=== PATIENT | female | born 1970 | race Caucasian/White ===

== ENCOUNTER 2023-12-01 12:47 | Emergency (ER) | payer OTHER ==
[2023-12-01 14:07] LABS: Absolute Basophils 0.1 K/uL (0-0.5); Absolute Eosinophils 0.5 K/uL (0-0.5); Absolute Lymphocytes (CBC) 3.2 K/uL (0.7-4.9); Absolute Monocytes 1.1 K/uL (0.1-1.3); Absolute Neutrophil 6.3 K/uL (1.8-8.0); Basophils % 0.7 % (0-1.3); Eosinophils % 4.3 % (0-4.4); Hematocrit 38.1 % (36.0-45.0); Hemoglobin 12.6 g/dL (12.0-15.0); Lymphocytes % 28.6 % (15.3-44.8); MCH 30.3 pg (27.0-35.0); MCV 91.7 fL (80-100); MPV 7.1 fL (7.6-11.3); Monocytes % 9.5 % (3.3-12.3); Neutrophils % 56.9 % (41.7-73.7); Nucleated Red Blood Cells % 0.1 % (0-0); Platelets 358 thou/uL (152-406); RBC Red Blood Cell Count 4.16 M/uL (3.86-4.86)
[2023-12-01 14:24] LABS: Albumin 3.7 g/dL (3.4-5.0); Anion Gap 10.7 mEq/L (5.0-15.0); Bilirubin Total 0.4 mg/dL (0.2-1.0); Globulin 3.8 g/dL (2.3-3.5); Potassium 3.7 mEq/L (3.5-5.1); Protein, Total 7.5 g/dL (6.4-8.2)
--- NOTE | 2023-12-01 16:17 | ER ---
Nurse's Notes [facility] Name: Missy Gardner Age: 52 yrs Sex: Female : 1970 Arrival Date: 12/01/2023 Time: 12:47 Bed 13 Private MD: Diagnosis: Cutaneous abscess of buttock-sp incision and drainage;Cellulitis of buttock Presentation: 11/30 12:55 Chief complaint: Patient states: abscess to right upper thigh, posterior , she got a iw shot of Rocephin on Tuesday and was started on cephalexin on Tuesday , it was not ready to be lanced when she saw her doctor on Tuesday. Coronavirus screen: At this time, the client does not indicate any symptoms associated with coronavirus-19. Ebola Screen: No symptoms or risks identified at this time. Initial Sepsis Screen: Does the patient meet any 2 criteria? No. Patient's initial sepsis screen is negative. Does the patient have a suspected source of infection? No. Patient's initial sepsis screen is negative. Risk Assessment: Do you want to hurt yourself or someone else? Patient reports no desire to harm self or others. Onset of symptoms was November 28, 2023. 12:55 Method Of Arrival: Ambulatory iw 12:55 Acuity: RALPH 3 iw Historical: - Allergies: 12:58 PENICILLINS; iw - Home Meds: 12:58 estrogen [Active]; venlafaxine oral [Active]; Omeprazole Oral [Active]; iw - PSHx: 12:58 hysterectomy; iw - Immunization history:: Adult Immunizations not up to date. - Infectious Disease History:: Denies. - Social history:: Smoking status: Reported history of juuling and/or vaping. - Family history:: not pertinent. Screenin:26 [facility] ED Fall Risk Assessment (Adult) History of falling in the last 3 months, kc6 including since admission No falls in past 3 months (0 pts) Confusion or Disorientation No (0 pts) Intoxicated or Sedated No (0 pts) Impaired Gait No (0 pts) Mobility Assist Device Used No (0 pt) Altered Elimination No (0 pt) Score/Fall Risk Level 0 - 2 = Low Risk. Abuse screen: Denies threats or abuse. Denies injuries from another. Nutritional screening: No deficits noted. Tuberculosis screening: No symptoms or risk factors identified. Assessment: 13:00 General: Appears in no apparent distress. comfortable, well groomed, well developed, kc6 Behavior is calm, cooperative, appropriate for age. Pain: Complains of pain in right hamstring. Neuro: Level of Consciousness is awake, alert, obeys commands, Oriented to person, place, time, situation, Appropriate for age. Cardiovascular: Capillary refill < 3 seconds. Respiratory: Airway is patent Trachea midline Respiratory effort is even, unlabored, Respiratory pattern is regular, symmetrical. GI: No signs and/or symptoms were reported involving the gastrointestinal system. : No signs and/or symptoms were reported regarding the genitourinary system. EENT: No signs and/or symptoms were reported regarding the EENT system. Derm: Skin is healthy with good turgor, Skin is normal, Abscess located on right hamstring is golf ball sized, has purulent drainage, is hot to touch, is red, is raised, was lanced by patient prior to arrival. Musculoskeletal: No signs and/or symptoms reported regarding the musculoskeletal system. Circulation, motion, and sensation intact. Capillary refill < 3 seconds, Range of motion: intact in all extremities. 14:00 Reassessment: Patient appears in no apparent distress at this time. No changes from kc6 previously documented assessment. Patient and/or family updated on plan of care and expected duration. Pain level reassessed. Patient is alert, oriented x 3, equal unlabored respirations, skin warm/dry/pink. 15:00 Reassessment: Patient appears in no apparent distress at this time. No changes from kc6 previously documented assessment. Patient and/or family updated on plan of care and expected duration. Pain level reassessed. Patient is alert, oriented x 3, equal unlabored respirations, skin warm/dry/pink. 16:38 Reassessment: Patient appears in no apparent distress at this time. No changes from kc6 previously documented assessment. Patient and/or family updated on plan of care and expected duration. Pain level reassessed. Patient is alert, oriented x 3, equal unlabored respirations, skin warm/dry/pink. Vital Signs: 12:55 BP 123 / 58; Pulse 81; Resp 16; Temp 98.6(O); Pulse Ox 98% on R/A; Weight 92.53 kg; iw 16:38 BP 120 / 78; Pulse 85; Resp 15 S; Pulse Ox 99% on R/A; kc6 ED Course: 12:49 Patient arrived in ED. mr 12:57 Natanael Brink MD is Attending Physician. dannie 12:57 Triage completed. iw 12:57 Arm band placed on. iw 13:17 Terri Erickson, BENJAMIN is Primary Nurse. kc6 13:26 Patient has correct armband on for positive identification. Bed in low position. Call kc6 light in reach. Side rails up X 1. Pulse ox on. NIBP on. Door closed. Noise minimized. Lights dimmed. Warm blanket given. Pillow given. 13:57 Initial lab(s) drawn, by co, sent to lab. Inserted saline lock: 22 gauge in left wrist, mb9 using aseptic technique. Blood collected. Flushed with 10 mL NS. 15:54 Assist provider with I \T\ D: of an abscess on right leg Set up I\T\D tray. Performed by kb 6 Natanael Brink MD Culture sent to lab. Wound packed. iodoform gauze, Dressing with ABD pad, 4X4s, tape Patient tolerated well. 16:17 Alok Peralta MD is Referral Physician. dannie 16:38 IV discontinued, intact, bleeding controlled, No redness/swelling at site. Pressure kc6 dressing applied. Administered Medications: 14:09 Not Given (Patient Refused): ondansetron 4 mg IVP once; over 2 minutes mb9 14:10 Drug: Clindamycin IVPB 900 mg IVPB once over 30 mins; (mix in 50 mL) Route: IVPB; mb9 Infused Over: 30 mins; Site: left wrist; 14:37 Follow up: Response: No adverse reaction; IV Status: Completed infusion; IV Intake: [id number] 14:10 Not Given (Patient Refused): morphineor iv 4 mg IVP once over 4 mins mb9 15:54 Drug: Lidocaine-Epinephrine Infiltration -1%: (1:100,000) 10 ml 20 ml Infiltration kc6 once; to bedside Volume: 20 ml; Route: Infiltration; 16:38 Follow up: Response: No adverse reaction; Pain is decreased kc6 16:37 Drug: Cephalexin PO 500 mg PO once Route: PO; kc6 16:37 Drug: Mupirocin Topical Ointment 2 % 1 application Topical once Route: Topical; Site: kc6 wound; Medication: 16:38 VIS not applicable for this client. kc6 Intake: 14:37 IV: 50ml; Total: 50ml. kc6 Outcome: 16:17 Discharge ordered by . dannie 16:38 Discharged to home ambulatory, kc6 16:38 Condition: good 16:38 Discharge instructions given to patient, Instructed on discharge instructions, follow up and referral plans. medication usage, wound care, Demonstrated understanding of instructions, follow-up care, medications, wound care, Prescriptions given X 3, 16:39 Patient left the ED. kc6 Signatures: Natanael Brink MD MD cha Rivera, Vannesa, Reg Reg mr Allison Brennan RN RN iw Terri Erickson RN RN Vannesa Dewey RN RN mb9 Corrections: (The following items were deleted from the chart) 13:53 12:55 BP 123 / 58; Pulse 81bpm; Resp 16bpm; Pulse Ox 98% RA; 92.53 kg; iw iw
--- NOTE | 2023-12-01 16:18 | EDPHYS ---
Physician Documentation [facility] Name: Missy Gardner Age: 52 yrs Sex: Female : 1970 Arrival Date: 12/01/2023 Time: 12:47 Bed 13 Private MD: SPENCER Physician Natanael Brink HPI: 11/30 16:11 This 52 yrs old Female presents to ER via Ambulatory with complaints of dannie Abscess. 16:11 The patient presents with an abscess of the right gluteus sapphire, The patient presents dannie with cellulitis of the right gluteus sapphire. Description: erythematous, fluctuant, swollen. Onset: The symptoms/episode began/occurred 5 day(s) ago. Possible cause(s): unknown. Associated signs and symptoms: The patient has no apparent associated signs or symptoms. Modifying factors: the symptoms are alleviated by remaining still, the symptoms are aggravated by movement, walking, pressure, sitting, squeezing the lesion and expressing the contents, touching. Severity of symptoms: At their worst the symptoms were moderate, in the emergency department the symptoms have improved, markedly. The patient has not experienced similar symptoms in the past. Historical: - Allergies: 12:58 PENICILLINS; iw - Home Meds: 12:58 estrogen [Active]; venlafaxine oral [Active]; Omeprazole Oral [Active]; iw - PSHx: 12:58 hysterectomy; iw - Immunization history:: Adult Immunizations not up to date. - Infectious Disease History:: Denies. - Social history:: Smoking status: Reported history of juuling and/or vaping. - Family history:: not pertinent. ROS: 16:11 Constitutional: Negative for fever, chills, and weight loss, Eyes: Negative for injury, dannie pain, redness, and discharge, ENT: Negative for injury, pain, and discharge, Neck: Negative for injury, pain, and swelling, Cardiovascular: Negative for chest pain, palpitations, and edema, Respiratory: Negative for shortness of breath, cough, wheezing, and pleuritic chest pain, Abdomen/GI: Negative for abdominal pain, nausea, vomiting, diarrhea, and constipation, Back: Negative for injury and pain, : Negative for injury, bleeding, discharge, and swelling, MS/Extremity: Negative for injury and deformity, Neuro: Negative for headache, weakness, numbness, tingling, and seizure, Psych: Negative for depression, anxiety, suicide ideation, homicidal ideation, and hallucinations, Allergy/Immunology: Negative for hives, rash, and allergies, Endocrine: Negative for neck swelling, polydipsia, polyuria, polyphagia, and marked weight changes, Hematologic/Lymphatic: Negative for swollen nodes, abnormal bleeding, and unusual bruising, 16:11 Skin: Positive for abscess, cellulitis, erythema, swelling, of the right gluteus sapphire, Exam: 16:11 Constitutional: This is a well developed, well nourished patient who is awake, alert, dannie and in no acute distress. Head/Face: Normocephalic, atraumatic. Eyes: Pupils equal round and reactive to light, extra-ocular motions intact. Lids and lashes normal. Conjunctiva and sclera are non-icteric and not injected. Cornea within normal limits. Periorbital areas with no swelling, redness, or edema. ENT: Nares patent. No nasal discharge, no septal abnormalities noted. Tympanic membranes are normal and external auditory canals are clear. Oropharynx with no redness, swelling, or masses, exudates, or evidence of obstruction, uvula midline. Mucous membranes moist. Neck: Trachea midline, no thyromegaly or masses palpated, and no cervical lymphadenopathy. Supple, full range of motion without nuchal rigidity, or vertebral point tenderness. No Meningismus. Chest/axilla: Normal chest wall appearance and motion. Nontender with no deformity. No lesions are appreciated. Cardiovascular: Regular rate and rhythm with a normal S1 and S2. No gallops, murmurs, or rubs. Normal PMI, no JVD. No pulse deficits. Respiratory: Lungs have equal breath sounds bilaterally, clear to auscultation and percussion. No rales, rhonchi or wheezes noted. No increased work of breathing, no retractions or nasal flaring. Abdomen/GI: Soft, non-tender, with normal bowel sounds. No distension or tympany. No guarding or rebound. No evidence of tenderness throughout. Back: No spinal tenderness. No costovertebral tenderness. Full range of motion. MS/ Extremity: Pulses equal, no cyanosis. Neurovascular intact. Full, normal range of motion. Neuro: Awake and alert, GCS 15, oriented to person, place, time, and situation. Cranial nerves II-XII grossly intact. Motor strength 5/5 in all extremities. Sensory grossly intact. Cerebellar exam normal. Normal gait. Psych: Awake, alert, with orientation to person, place and time. Behavior, mood, and affect are within normal limits. 16:11 Skin: abscess, that is moderate sized, of the buttocks, cellulitis, that is moderate, well demarcated, on the right gluteus sapphire, Vital Signs: 12:55 BP 123 / 58; Pulse 81; Resp 16; Temp 98.6(O); Pulse Ox 98% on R/A; Weight 92.53 kg; iw 16:38 BP 120 / 78; Pulse 85; Resp 15 S; Pulse Ox 99% on R/A; kc6 MDM: 12:57 Patient medically screened. [facility] 16:16 Differential diagnosis: abscess, cellulitis, insect bite. Data reviewed: vital signs, [facility] nurses notes, lab test result(s), CBC, electrolytes, hepatic panel. Consideration of Admission/Observation Escalation of care including admission/observation considered. I considered the following discharge prescriptions or medication management in the emergency department Medications were administered in the Emergency Department. See MAR. Test considered but Not performed: Ultrasound no usg. Care significantly affected by the following chronic conditions: Obesity. 11/30 13:41 Order name: CBC with Diff; Complete Time: 15:22 [facility] 11/30 13:41 Order name: Comprehensive Metabolic Panel; Complete Time: 15:22 [facility] 11/30 13:41 Order name: Wound Culture [facility] 11/30 13:41 Order name: Dressing - Wound; Complete Time: 13:43 [facility] 11/30 13:41 Order name: Gloves, Sterile; Complete Time: 13:43 [facility] 11/30 13:41 Order name: Setup Suture Tray; Complete Time: 13:43 [facility] 11/30 13:41 Order name: Misc. Order: 11 blade, iodo gauze; Complete Time: 13:43 [facility] Administered Medications: 14:09 Not Given (Patient Refused): ondansetron 4 mg IVP once; over 2 minutes mb9 14:10 Drug: Clindamycin IVPB 900 mg IVPB once over 30 mins; (mix in 50 mL) Route: IVPB; mb9 Infused Over: 30 mins; Site: left wrist; 14:37 Follow up: Response: No adverse reaction; IV Status: Completed infusion; IV Intake: [id number] 14:10 Not Given (Patient Refused): morphineor iv 4 mg IVP once over 4 mins mb9 15:54 Drug: Lidocaine-Epinephrine Infiltration -1%: (1:100,000) 10 ml 20 ml Infiltration kc6 once; to bedside Volume: 20 ml; Route: Infiltration; 16:38 Follow up: Response: No adverse reaction; Pain is decreased kc6 16:37 Drug: Cephalexin PO 500 mg PO once Route: PO; kc6 16:37 Drug: Mupirocin Topical Ointment 2 % 1 application Topical once Route: Topical; Site: kc6 wound; Disposition Summary: 12/01/23 16:17 Discharge Ordered Notes: Location: Home [facility] Problem: new dannie Symptoms: have improved dannie Condition: Fair dannie Diagnosis - Cutaneous abscess of buttock - sp incision and drainage dannie - Cellulitis of buttock dannie Followup: dannie - With: Private Physician - When: 2 - 3 days - Reason: Recheck today's complaints, Continuance of care, Re-evaluation by your physician Followup: dannie - With: Alok Peralta MD - When: 2 - 3 days - Reason: Recheck today's complaints, Re-evaluation by your physician Discharge Instructions: - Discharge Summary Sheet dannie - Skin Abscess dannie - Cellulitis, Adult dannie - Incision and Drainage dannie - Skin Abscess, [id number] dannie - Cellulitis, Adult, [id number] dannie - Incision and Drainage, Care After dannie Forms: - Medication Reconciliation Form dannie - Antibiotic Education dannie - Prescription Opioid Use dannie - Patient Portal Instructions [facility] - Leadership Thank You Letter [facility] Prescriptions: - acetaminophen-codeine 300-30 mg Oral tablet - take 2 tablet ORAL route every 6 hours as needed for pain; 20 tablet; Refills: dannie 0, Product Selection Permitted - Centany 2 % Topical ointment - apply 1 application TOPICAL route 3 times per day; 15 gram; Refills: 0, Product [facility] Selection Permitted - Clindamycin HCl 300 mg Oral capsule - take 1 capsule ORAL route every 6 hours for 7 days; 28 capsule; Refills: 0, dannie Product Selection Permitted Signatures: Dispatcher [employer] Natanael Mcneil MD MD cha Williams, Irene, RN RN iw Campbell, Kaitlyn, RN RN kc6 Vannesa Goncalves RN RN mb9
[2023-12-01 16:53] VITALS: TEMP 98.6
[2023-12-01 16:59] VITALS: BP 120/78; O2SAT 99
== END 2023-12-01 16:39 | disposition home or self-care (01) ==
LOC: ER 12:47
PROC: 0H98XZZ Drainage of Buttock Skin, External Approach (ICD-10-PCS; principal; 2023-12-01)
DX: L02.31 Cutaneous abscess of buttock (principal); L03.317 Cellulitis of buttock; Z87.891 Personal history of nicotine dependence; Z88.0 Allergy status to penicillin
CPT/HCPCS: 36415; 80053; 85025; 87070; 87205; 96365; 99284

== ENCOUNTER 2024-03-13 13:35 | Emergency (ER) | payer OTHER ==
[2024-03-13] MEDS ORDERED: ACETAMINOPHEN 500 MG TAB ONE (13:54)
[2024-03-13] MEDS ORDERED: IBUPROFEN 400 MG TAB ONE (13:54)
--- NOTE | 2024-03-13 15:24 | RAD REPORT ---
EXAM:Extremity Nonvascular Complete CLINICAL HISTORY: Pain and swelling TECHNIQUE: Sonographic evaluation of left inner thigh performed. FINDINGS: Ill-defined fluid collection measuring 2 x 0.5 x 0.8 cm is present. Increased vascularity is present adjacent to this. IMPRESSION: Small ill-defined fluid collection left inner thigh probably a cellulitis. A well-formed abscess is n ot visualized.
--- NOTE | 2024-03-13 15:55 | ER ---
Nurse's Notes [facility] Name: Missy Gardner Age: 53 yrs Sex: Female : 1970 Arrival Date: 03/13/2024 Time: 13:35 Bed 17 Private MD: Diagnosis: Cellulitis of left lower limb;Cutaneous abscess of left lower limb Presentation: 03/13 13:51 Chief complaint: Patient states: Spider bite to inside of left thigh onset 1.5wks ago. cm10 Pt states that she has taken Bactrim, Clindamycin and has had a rocephin injection. Pt states her PCP told her to come to the ED. Coronavirus screen: Client denies travel out of the [place] in the last 14 days. Ebola Screen: Patient denies travel to an Ebola-affected area in the 21 days before illness onset. No symptoms or risks identified at this time. Initial Sepsis Screen: Does the patient meet any 2 criteria? No. Patient's initial sepsis screen is negative. Does the patient have a suspected source of infection? No. Patient's initial sepsis screen is negative. Risk Assessment: Do you want to hurt yourself or someone else? Patient reports no desire to harm self or others. Onset of symptoms was March 13, 2024. 13:51 Method Of Arrival: Ambulatory cm10 13:51 Acuity: RALPH 3 cm10 Triage Assessment: 13:56 General: Appears in no apparent distress. uncomfortable, Behavior is calm, cooperative. cm10 Neuro: No deficits noted. Level of Consciousness is awake, alert, obeys commands, Oriented to person, place, time, situation, Appropriate for age. Respiratory: No deficits noted. Airway is patent Respiratory effort is even, unlabored, Respiratory pattern is regular, symmetrical. Derm: Abscess located on medial aspect of left thigh. Historical: - Allergies: 13:56 PENICILLINS; cm10 - PSHx: 13:56 hysterectomy; cm10 - Immunization history:: Adult Immunizations up to date. - Infectious Disease History:: Denies. - Social history:: Smoking status: Reported history of juuling and/or vaping. Screenin:29 [facility] ED Fall Risk Assessment (Adult) History of falling in the last 3 months, db including since admission No falls in past 3 months (0 pts) Confusion or Disorientation No (0 pts) Intoxicated or Sedated No (0 pts) Impaired Gait No (0 pts) Mobility Assist Device Used No (0 pt) Altered Elimination No (0 pt) Score/Fall Risk Level 0 - 2 = Low Risk Oriented to surroundings, Maintained a safe environment. Abuse screen: Denies threats or abuse. Denies injuries from another. Nutritional screening: No deficits noted. Tuberculosis screening: No symptoms or risk factors identified. Assessment: 16:29 Reassessment: Patient appears in no apparent distress at this time. Patient and/or db family updated on plan of care and expected duration. Pain level reassessed. Patient is alert, oriented x 3, equal unlabored respirations, skin warm/dry/pink. General: Appears in no apparent distress. comfortable, Behavior is calm, cooperative. Pain: Complains of pain in medial aspect of left thigh. Neuro: Level of Consciousness is awake, alert, obeys commands, Oriented to person, place. Respiratory: Airway is patent Respiratory effort is even, unlabored, Respiratory pattern is regular, symmetrical. Derm: Abscess located on medial aspect of left thigh. Vital Signs: 13:51 BP 111 / 98; Pulse 88; Resp 18; Temp 97.9(O); Pulse Ox 94% on R/A; Weight 90.72 kg; cm10 Height 5 ft. 2 in. ; Pain 10/10; 16:29 BP 109 / 45; Pulse 74; Resp 16; Pulse Ox 100% on R/A; db 13:51 Body Mass Index 36.58 (90.72 kg, 157.48 cm) cm10 13:51 Pain Scale: Adult cm10 ED Course: 13:40 Patient arrived in ED. ra3 13:48 Polina Hahn FNP-C is PHCP. kb 13:48 Steve Vargas MD is Attending Physician. kb 13:56 Triage completed. cm10 13:56 Arm band placed on right wrist. Patient placed in waiting room. cm10 14:50 Extremity Nonvascular Complete In Process Unspecified. EDMS 16:10 Dianne Deng, BENJAMIN is Primary Nurse. db 16:26 Wound Culture Sent. db 16:29 Patient has correct armband on for positive identification. Bed in low position. Call db light in reach. Side rails up X 1. Provided Education on: DISCHARGE AND FOLLOWUP. Pulse ox on. NIBP on. Pillow given. 16:29 No provider procedures requiring assistance completed. Patient did not have IV access db during this emergency room visit. Administered Medications: 13:59 Drug: Ibuprofen PO 800 mg PO once Route: PO; cm10 16:32 Follow up: Response: No adverse reaction db 13:59 Drug: Acetaminophen PO 1000 mg PO once Route: PO; cm10 16:32 Follow up: Response: No adverse reaction db 16:00 Drug: Doxycycline PO 100 mg PO once Route: PO; db 16:31 Follow up: Response: No adverse reaction db Medication: 16:29 VIS not applicable for this client. db Outcome: 15:54 Discharge ordered by MD. kb 16:29 Discharged to home ambulatory, db 16:29 Condition: stable 16:29 Discharge instructions given to patient, Instructed on discharge instructions, follow up and referral plans. Prescriptions given X 1, 16:32 Patient left the ED. db Addendum: 03/16/2024 07:22 Addendum: Culture Results: Positive wound culture. positive for MRSA. report received h a1 from laboratory helper. Signatures: Dispatcher [employer] EDMS Polina Hahn, ELECTRIC SOLDERER-C ELECTRIC SOLDERER-Farzaneh Brooks, RN RN ha1 Dianne Deng RN RN Susan Medeiros RN RN cm10 Kierra Corral ra3
--- NOTE | 2024-03-13 15:55 | EDPHYS ---
Physician Documentation [facility] Name: Missy Gardner Age: 53 yrs Sex: Female : 1970 Arrival Date: 03/13/2024 Time: 13:35 Bed 17 Private MD: ED Physician Steve Vargas HPI: 03/13 13:59 This 53 yrs old Female presents to ER via Ambulatory with complaints of Spider bite. kb 13:59 Pt is a 53 year old female who presents for abscess to medial aspect of left thigh that kb started 1.5 weeks ago. States she was seen by PCP who gave her a shot of rocephin and started her on bactrim and clindamycin (has one more day left of course). States the surrounding redness has gotten better, but the area is still swollen, there is an opening now that has gotten worse and the pain is worse. Reports fever last week that has resolved. Denies nausea, vomiting. . Historical: - Allergies: 13:56 PENICILLINS; cm10 - PSHx: 13:56 hysterectomy; cm10 - Immunization history:: Adult Immunizations up to date. - Infectious Disease History:: Denies. - Social history:: Smoking status: Reported history of juuling and/or vaping. ROS: 13:59 Constitutional: As per HPI kb Exam: 13:59 Constitutional: This is a well developed, well nourished patient who is awake, alert, kb and in no acute distress. Head/Face: Normocephalic, atraumatic. ENT: Moist Mucous membranes Cardiovascular: Regular rate Respiratory: Respirations even and unlabored. No increased work of breathing. Talking in full sentences MS/ Extremity: Pulses equal, no cyanosis. Neurovascular intact. Full, normal range of motion. Neuro: Awake and alert, GCS 15, oriented to person, place, time, and situation. 13:59 Skin: abscess, that is small, of the medial aspect of left thigh, with drainage, moderate/large mass felt above level of abscess. , Vital Signs: 13:51 BP 111 / 98; Pulse 88; Resp 18; Temp 97.9(O); Pulse Ox 94% on R/A; Weight 90.72 kg; cm10 Height 5 ft. 2 in. ; Pain 10/10; 16:29 BP 109 / 45; Pulse 74; Resp 16; Pulse Ox 100% on R/A; db 13:51 Body Mass Index 36.58 (90.72 kg, 157.48 cm) cm10 13:51 Pain Scale: Adult cm10 MDM: 13:48 Medical Screening Exam initiated 14:02 Data reviewed: vital signs, nurses notes. ED course: Pt is a 53 year old female who kb presents for abscess to left leg. On exam, pt has open and draining abscess to medial aspect of left thigh with a moderate/large mass just above it. Will obtain US to evaluate mass. Pt given ibuprofen and tylenol for pain management. Pt requests we do not give anything stronger. . 15:51 Differential diagnosis: abscess, allergic reaction, cellulitis, insect bite. kb Consideration of Admission/Observation Escalation of care including admission/observation considered. admission considered for IV antibiotics since pt has almost completed po antibiotics, but symptoms have improved since taking oral antibiotics, vitals wnl. Discussed this with patient and offered admission for IV antibiotics, but pt states she wants to go home. Discussed case with Dr Vargas who recommends adding doxycycline for infection. . Counseling: I had a detailed discussion with the patient and/or guardian regarding the historical points, exam findings, and any diagnostic results supporting the discharge/admit diagnosis, radiology results, the need for outpatient follow up, a family practitioner, to return to the emergency department if symptoms worsen or persist or if there are any questions or concerns that arise at home. ED course: Discussed US results with pt and gave a printed copy. Educated that there is no abscess to I\T\D at this time based on US. Educated on taking antibiotics and on return precautions. Verbal understanding received. . 03/13 15:43 Order name: Wound Culture 03/13 14:16 Order name: Extremity Nonvascular Complete; Complete Time: 15:26 EDMS Administered Medications: 13:59 Drug: Ibuprofen PO 800 mg PO once Route: PO; cm10 16:32 Follow up: Response: No adverse reaction db 13:59 Drug: Acetaminophen PO 1000 mg PO once Route: PO; cm10 16:32 Follow up: Response: No adverse reaction db 16:00 Drug: Doxycycline PO 100 mg PO once Route: PO; db 16:31 Follow up: Response: No adverse reaction db Disposition: 17:18 Co-signature as Attending Physician, Steve Vargas MD I reviewed the patient's care rn provided by the Advanced Practice Provider and agree with the diagnosis and treatment plan. Disposition Summary: 03/13/24 15:54 Discharge Ordered Notes: Location: Home kb Condition: Stable kb Diagnosis - Cellulitis of left lower limb kb - Cutaneous abscess of left lower limb kb Followup: kb - With: Private Physician - When: 2 - 3 days - Reason: Recheck today's complaints, Continuance of care, Re-evaluation by your physician Followup: kb - With: Emergency Department - When: As needed - Reason: Worsening of condition Discharge Instructions: - Discharge Summary Sheet kb - Skin Abscess, [id number] kb - Cellulitis, Adult, [id number] kb Forms: - Medication Reconciliation Form kb - Antibiotic Education kb - Prescription Opioid Use kb - Patient Portal Instructions kb - Leadership Thank You Letter kb - Work release form db Prescriptions: - Doxycycline Hyclate 100 mg Oral Tablet - take 1 tablet ORAL route every 12 hours; 20 tablet; Refills: 0, Product kb Selection Permitted Signatures: Dispatcher [employer] EDTN Polina Hahn, DELILAH-C SENIOR DATA ARCHITECT-Steve Le MD MD rn Benton, Danielle, RN RN Susan Medeiros, RN RN cm10 Corrections: (The following items were deleted from the chart) 14:16 13:57 Extrmty Nonvasular Limited+[id number] ordered. [facility] EDTN 16:22 15:51 Consideration of Admission/Observation Escalation of care including kb admission/observation considered. admission considered for IV antibiotics since pt has almost completed po antibiotics, but symptoms have improved since taking oral antibiotics, vitals wnl. Discussed case with Dr Vargas who recommends adding doxycycline for infection. . kb
[2024-03-13] MEDS ORDERED: DOXYCYCLINE 100 MG CAP PO ONE (16:19)
[2024-03-13 20:04] VITALS: TEMP 97.9
[2024-03-13 20:05] VITALS: BP 109/45; O2SAT 100
== END 2024-03-13 16:32 | disposition home or self-care (01) ==
LOC: ER 13:35
DX: L03.116 Cellulitis of left lower limb (principal); L02.416 Cutaneous abscess of left lower limb
CPT/HCPCS: 76881; 87070; 87077; 87186; 87205; 99284

== ENCOUNTER 2025-01-27 13:43 | Emergency (ER) | payer OTHER ==
[2025-01-27] MEDS ORDERED: CEPHALEXIN 250 MG CAP ONE (14:19)
[2025-01-27] MEDS ORDERED: IBUPROFEN 400 MG TAB ONE (14:20)
[2025-01-27] MEDS ORDERED: DOXYCYCLINE 100 MG CAP PO ONE (14:20)
[2025-01-27] MEDS ORDERED: LIDOCAINE 1% MPF 5 ML VIAL ONE (14:46)
--- NOTE | 2025-01-27 15:33 | EDPHYS ---
Physician Documentation [facility] Name: Missy Gardner Age: 54 yrs Sex: Female : 1970 Arrival Date: 01/27/2025 Time: 13:43 Bed 19 Private MD: ED Physician Steve Vargas HPI: 01/27 15:34 This 54 yrs old Female presents to ER via Ambulatory with complaints of Insect Bite. kb 15:34 Pt is a 54 year old female who presents for abscess to right buttock that started after kb being bit by spider on Tuesday morning. Denies fever, chills. . 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 - Infectious Disease History:: Denies. - Social history:: Smoking status: Reported history of juuling and/or vaping. ROS: 15:30 Constitutional: As per HPI kb Exam: 15:30 Constitutional: This is a well developed, well nourished patient who is awake, alert, kb and in no acute distress. Head/Face: Normocephalic, atraumatic. ENT: Moist Mucous membranes Cardiovascular: Regular rate Respiratory: Respirations even and unlabored. No increased work of breathing. Talking in full sentences MS/ Extremity: Pulses equal, no cyanosis. Neurovascular intact. Full, normal range of motion. Neuro: Awake and alert, GCS 15, oriented to person, place, time, and situation. 15:30 Skin: abscess, that is moderate sized, of the right gluteus sapphire, with drainage, with fluctuance, with induration, with surrounding cellulitis, that is moderate, Vital Signs: 13:52 BP 117 / 55; Pulse 84; Resp 16; Temp 98.3; Pulse Ox 99% on R/A; Weight 84.82 kg; Height dd2 5 ft. 2 in. ; Pain 10/10; 15:50 BP 116 / 55; Pulse 84; Resp 16; Pulse Ox 99% on R/A; db 13:52 Body Mass Index 34.20 (84.82 kg, 157.48 cm) dd2 13:52 Pain Scale: Adult dd2 Procedures: 15:32 I \T\ D: Incision and drainage was performed for an abscess of the right right gluteus kb sapphire Prepped with Betadine, Anesthetized with 4 ml's 1% Lidocaine. Incised with #11 blade. Drained large amount purulent fluid. Dressing: sterile 4x4 gauze, the patient tolerated the procedure well. MDM: 13:53 Medical Screening Exam initiated kb 15:31 Differential diagnosis: insect bite, cellulitis, abscess. Data reviewed: vital signs, kb nurses notes. Consideration of Admission/Observation Escalation of care including admission/observation considered. admission considered but pt does not want to be admitted to the hospital. Test considered but Not performed: Labs: cbc, cmp considered but vitals wnl, results would not change plan of care since pt does not want to be admitted. Historians other than the Patient: Friend: friend. Counseling: I had a detailed discussion with the patient and/or guardian regarding the historical points, exam findings, and any diagnostic results supporting the discharge/admit diagnosis, the need for outpatient follow up, a general surgeon, to return to the emergency department if symptoms worsen or persist or if there are any questions or concerns that arise at home. 01/27 14:16 [place]: [facility] Order: please soak gauze that is covering abscess to remove; Complete kb Time: 14:27 01/27 14:39 Order name: I\T\D Setup; Complete Time: 14:50 kb Administered Medications: 14:27 Drug: Ibuprofen PO 800 mg PO once Route: PO; ll1 15:52 Follow up: Response: No adverse reaction db 14:27 Drug: Doxycycline PO 100 mg PO once Route: PO; ll1 15:52 Follow up: Response: No adverse reaction db 14:27 Drug: Cephalexin PO 500 mg PO once Route: PO; ll1 15:52 Follow up: Response: No adverse reaction db 14:50 Drug: Lidocaine Infiltration (1 %) 1 vials 5 ml Infiltration once; to bedside {Note: db GIVEN TO PROVIDER.} Volume: 5 ml; Route: Infiltration; 15:52 Follow up: Response: No adverse reaction db Disposition: 16:45 Co-signature as Attending Physician, Steve Vargas MD I reviewed the patient's care rn provided by the Advanced Practice Provider and agree with the diagnosis and treatment plan. Disposition Summary: 01/27/25 15:33 Discharge Ordered Notes: Location: Home kb Condition: Stable kb Diagnosis - Cutaneous abscess of buttock kb - Cellulitis of buttock kb Followup: kb - With: Emergency Department - When: As needed - Reason: Worsening of condition Followup: kb - With: Private Physician - When: 2 - 3 days - Reason: Recheck today's complaints, Continuance of care, Re-evaluation by your physician Followup: kb - With: Alok Peralta MD - When: 2 - 3 days - Reason: Recheck today's complaints Discharge Instructions: - Discharge Summary Sheet kb - Skin Abscess, [id number] kb - Incision and Drainage, Care After kb Forms: - Medication Reconciliation Form kb - Antibiotic Education kb - Prescription Opioid Use kb - Patient Portal Instructions kb - Leadership Thank You Letter kb Prescriptions: - Cephalexin 500 mg Oral Capsule - take 1 capsule ORAL route every 8 hours for 10 days; 30 capsule; Refills: 0, kb Product Selection Permitted - Doxycycline Hyclate 100 mg Oral Tablet - take 1 tablet ORAL route every 12 hours; 20 tablet; Refills: 0, Product kb Selection Permitted Signatures: Polina Hahn, HEALTH INFORMATION TECH-C HEALTH INFORMATION TECH-Steve Le MD MD rn Lewis, Lynsay RN RN ll1 Dianne Deng, RN RN GRACE Anderson RN RN dd2
--- NOTE | 2025-01-27 15:33 | ER ---
Nurse's Notes [facility] Name: Missy Gardner Age: 54 yrs Sex: Female : 1970 Arrival Date: 01/27/2025 Time: 13:43 Bed 19 Private MD: Diagnosis: Cutaneous abscess of buttock;Cellulitis of buttock Presentation: 01/27 13:52 Chief complaint: Patient states: SPIDER BITE ON TUESDAY MORNING. PT REPORTS SHE WOKE UP dd2 WITH A RED RAISED AREA ON RT HIP AND WORSENED EACH DAY. PT REPORTS IS BURST LAST NIGHT AND HAS JOINT AND BODY ACHES. Coronavirus screen: At this time, the client does not indicate any symptoms associated with coronavirus-19. Ebola Screen: No symptoms or risks identified at this time. Initial Sepsis Screen: Does the patient meet any 2 criteria? No. Patient's initial sepsis screen is negative. Does the patient have a suspected source of infection? No. Patient's initial sepsis screen is negative. Risk Assessment: Do you want to hurt yourself or someone else? Patient reports no desire to harm self or others. Onset of symptoms was January 22, 2025. 13:52 Method Of Arrival: Ambulatory dd2 13:52 Acuity: RALPH 3 dd2 Triage Assessment: 13:55 Bite description: bite sustained to right gluteal fold by a spider, animal information: dd2 vaccination(s) is not applicable. General: Appears in no apparent distress. uncomfortable, Behavior is cooperative, appropriate for age, anxious. Pain: Complains of pain in right hip. 13:55 Derm: Abscess located on right hip. 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 - Infectious Disease History:: Denies. - Social history:: Smoking status: Reported history of juuling and/or vaping. Screenin:22 [facility] ED Fall Risk Assessment (Adult) History of falling in the last 3 months, db including since admission No falls in past 3 months (0 pts) Confusion or Disorientation No (0 pts) Intoxicated or Sedated No (0 pts) Impaired Gait No (0 pts) Mobility Assist Device Used No (0 pt) Altered Elimination No (0 pt) Score/Fall Risk Level 0 - 2 = Low Risk Oriented to surroundings, Maintained a safe environment. Abuse screen: Denies threats or abuse. Denies injuries from another. Nutritional screening: No deficits noted. Tuberculosis screening: No symptoms or risk factors identified. Assessment: 14:20 Reassessment: Patient appears in no apparent distress at this time. Patient and/or db family updated on plan of care and expected duration. Pain level reassessed. Patient is alert, oriented x 3, equal unlabored respirations, skin warm/dry/pink. General: Appears in no apparent distress. comfortable, Behavior is calm, cooperative. Neuro: Level of Consciousness is awake, alert, obeys commands, Oriented to person, place, time, situation. 14:35 Respiratory: Airway is patent Respiratory effort is even, unlabored, Respiratory db pattern is. Derm: Skin Skin is red, Wound noted right hip Other: ABSCESS ON RIGHT HIP. 15:50 Reassessment: Patient appears in no apparent distress at this time. Patient and/or db family updated on plan of care and expected duration. Pain level reassessed. Patient is alert, oriented x 3, equal unlabored respirations, skin warm/dry/pink. Vital Signs: 13:52 BP 117 / 55; Pulse 84; Resp 16; Temp 98.3; Pulse Ox 99% on R/A; Weight 84.82 kg; Height dd2 5 ft. 2 in. ; Pain 10/10; 15:50 BP 116 / 55; Pulse 84; Resp 16; Pulse Ox 99% on R/A; db 13:52 Body Mass Index 34.20 (84.82 kg, 157.48 cm) dd2 13:52 Pain Scale: Adult dd2 ED Course: 13:49 Patient arrived in ED. sj2 13:53 Polina Hahn FNP-C is [facility]. kb 13:53 Steve Vargas MD is Attending Physician. kb 13:55 Triage completed. dd2 13:55 Arm band placed on right wrist. dd2 14:20 Dianne Deng, BENJAMIN is Primary Nurse. db 14:32 Patient has correct armband on for positive identification. Bed in low position. Call db light in reach. Side rails up X 1. Pulse ox on. NIBP on. 14:51 Assist provider with I \T\ D: Set up I\T\D tray. db 15:33 Alok Peralta MD is Referral Physician. kb 15:50 Provided Education on: DISCHARGE AND FOLLOWUP. db 15:50 Patient did not have IV access during this emergency room visit. db 15:51 Assist provider with I \T\ D: of an abscess on Performed by Polina SHARIF db Dressing with 4X4s, Patient tolerated well. Administered Medications: 14:27 Drug: Ibuprofen PO 800 mg PO once Route: PO; ll1 15:52 Follow up: Response: No adverse reaction db 14:27 Drug: Doxycycline PO 100 mg PO once Route: PO; ll1 15:52 Follow up: Response: No adverse reaction db 14:27 Drug: Cephalexin PO 500 mg PO once Route: PO; ll1 15:52 Follow up: Response: No adverse reaction db 14:50 Drug: Lidocaine Infiltration (1 %) 1 vials 5 ml Infiltration once; to bedside {Note: db GIVEN TO PROVIDER.} Volume: 5 ml; Route: Infiltration; 15:52 Follow up: Response: No adverse reaction db Medication: 14:23 VIS not applicable for this client. db Outcome: 15:33 Discharge ordered by MD. kb 15:50 Discharged to home ambulatory, with family, db 15:50 Condition: stable 15:50 Discharge instructions given to patient, family, Instructed on discharge instructions, follow up and referral plans. Prescriptions given X 2, 15:53 Patient left the ED. db Signatures: Polina Hahn FNP-C FNP-Yariel Salgado RN RN ll1 Dianne Deng RN RN db GRACE JIMENEZ RN RN dd2 Maribel Brown sj2 Corrections: (The following items were deleted from the chart) 13:58 13:52 Chief complaint: Patient states: SPIDER BITE ON TUESDAY MORNING. PT REPORTS SHE dd2 WOKE UP WITH A RED RAISED AREA ON RT LOWER BUTTOCKS AND WORSENED EACH DAY. PT REPORTS IS BURST LAST NIGHT AND HAS JOINT AND BODY ACHES. dd2 14:37 14:20 Reassessment: Patient appears in no apparent distress at this time. Patient db and/or family updated on plan of care and expected duration. Pain level reassessed. Patient is alert, oriented x 3, equal unlabored respirations, skin warm/dry/pink. db
[2025-01-27 21:58] VITALS: TEMP 98.3; O2SAT 99
[2025-01-27 22:00] VITALS: BP 116/55
== END 2025-01-27 15:53 | disposition home or self-care (01) ==
LOC: ER 13:43
PROC: 0H98XZZ Drainage of Buttock Skin, External Approach (ICD-10-PCS; principal; 2025-01-27)
DX: L02.31 Cutaneous abscess of buttock (principal); L03.317 Cellulitis of buttock
CPT/HCPCS: 99284; 10060; J2003

== ENCOUNTER 2025-01-31 11:41 | Emergency (ER) | payer OTHER ==
[2025-01-31] MEDS ORDERED: LIDOCAINE 2% W/EPI 1:200,000 MPF 20 ML VIAL IM ONE ×2 (12:22→12:49)
--- NOTE | 2025-01-31 13:11 | EDPHYS ---
Physician Documentation [facility] Name: Missy Gardner Age: 54 yrs Sex: Female : 1970 Arrival Date: 01/31/2025 Time: 11:41 Bed 15 Private MD: ED Physician Natanael Brink HPI: 01/31 13:06 This 54 yrs old Female presents to ER via Ambulatory with complaints of dannie Insect Bite. 13:06 The patient presents with an abscess of the right gluteus sapphire, The patient presents dannie with cellulitis of the buttocks and right gluteus sapphire, the patient presents with a swollen area of the buttocks. Description: The affected area is moderate sized, confluent, localized, draining, erythematous, fluctuant, hot. Possible cause(s): insect sting. Associated signs and symptoms: The patient has no apparent associated signs or symptoms. Severity of symptoms: At their worst the symptoms were moderate, in the emergency department the symptoms are unchanged. The patient has experienced similar episodes in the past, several times. Historical: - Allergies: 11:46 PENICILLINS; ll1 - PMHx: 11:46 Anxiety; panic attack; ll1 - PSHx: 11:46 hysterectomy; ll1 - Immunization history:: Adult Immunizations up to date. - Infectious Disease History:: Denies. - Social history:: Smoking status: Reported history of juuling and/or vaping. - Family history:: not pertinent. ROS: 13:06 Constitutional: Negative for fever, chills, and weight loss, Eyes: Negative for injury, dannie pain, redness, and discharge, ENT: Negative for injury, pain, and discharge, Neck: Negative for injury, pain, and swelling, Cardiovascular: Negative for chest pain, palpitations, and edema, Respiratory: Negative for shortness of breath, cough, wheezing, and pleuritic chest pain, Abdomen/GI: Negative for abdominal pain, nausea, vomiting, diarrhea, and constipation, Back: Negative for injury and pain, : Negative for injury, bleeding, discharge, and swelling, MS/Extremity: Negative for injury and deformity, Neuro: Negative for headache, weakness, numbness, tingling, and seizure, Psych: Negative for depression, anxiety, suicide ideation, homicidal ideation, and hallucinations, Allergy/Immunology: Negative for hives, rash, and allergies, Endocrine: Negative for neck swelling, polydipsia, polyuria, polyphagia, and marked weight changes, Hematologic/Lymphatic: Negative for swollen nodes, abnormal bleeding, and unusual bruising, 13:06 Skin: Positive for cellulitis, swelling, Exam: 13:06 Constitutional: This is a well developed, well nourished patient who is awake, alert, dannie and in no acute distress. Head/Face: Normocephalic, atraumatic. Eyes: Pupils equal round and reactive to light, extra-ocular motions intact. Lids and lashes normal. Conjunctiva and sclera are non-icteric and not injected. Cornea within normal limits. Periorbital areas with no swelling, redness, or edema. ENT: Nares patent. No nasal discharge, no septal abnormalities noted. Tympanic membranes are normal and external auditory canals are clear. Oropharynx with no redness, swelling, or masses, exudates, or evidence of obstruction, uvula midline. Mucous membranes moist. Neck: Trachea midline, no thyromegaly or masses palpated, and no cervical lymphadenopathy. Supple, full range of motion without nuchal rigidity, or vertebral point tenderness. No Meningismus. Chest/axilla: Normal chest wall appearance and motion. Nontender with no deformity. No lesions are appreciated. Cardiovascular: Regular rate and rhythm with a normal S1 and S2. No gallops, murmurs, or rubs. Normal PMI, no JVD. No pulse deficits. Respiratory: Lungs have equal breath sounds bilaterally, clear to auscultation and percussion. No rales, rhonchi or wheezes noted. No increased work of breathing, no retractions or nasal flaring. Abdomen/GI: Soft, non-tender, with normal bowel sounds. No distension or tympany. No guarding or rebound. No evidence of tenderness throughout. Back: No spinal tenderness. No costovertebral tenderness. Full range of motion. MS/ Extremity: Pulses equal, no cyanosis. Neurovascular intact. Full, normal range of motion., bilateral aka Neuro: Awake and alert, GCS 15, oriented to person, place, time, and situation. Cranial nerves II-XII grossly intact. Motor strength 5/5 in all extremities. Sensory grossly intact. Cerebellar exam normal. Normal gait. Psych: Awake, alert, with orientation to person, place and time. Behavior, mood, and affect are within normal limits. 13:06 Skin: abscess, that is moderate sized, of the right gluteus sapphire, cellulitis, that is minimal, induration, that is moderate is noted, Vital Signs: 11:52 BP 130 / 73; Pulse 78; Resp 17; Temp 98.7; Pulse Ox 100% ; Weight 86.18 kg; Height 5 ll1 ft. 2 in. ; Pain 10/10; 11:52 Body Mass Index 34.75 (86.18 kg, 157.48 cm) ll1 11:52 Pain Scale: Adult ll1 Procedures: 13:06 I \T\ D: Incision and drainage was performed for an abscess of the right Prepped with [facility] Betadine, Anesthetized with 10 ml's 1% Lidocaine w/ Epi. Incised with #11 blade. Drained moderate amount Packed with iodoform gauze, Dressing: non-Adherent dressing, the patient tolerated the procedure well. MDM: 11:49 Medical Screening Exam initiated [facility] 13:06 Differential diagnosis: abscess, cellulitis, insect bite. Data reviewed: vital signs, [facility] nurses notes. Consideration of Admission/Observation Escalation of care including admission/observation considered. I considered the following discharge prescriptions or medication management in the emergency department Medications were administered in the Emergency Department. See MAR. Test considered but Not performed: Labs: no cbc , no cmp. Historians other than the Patient: pt well informed. Care significantly affected by the following chronic conditions: Obesity, panic , mrsa. 01/31 13:05 Order name: Wound Culture [facility] 01/31 13:05 Order name: Dressing - Wound; Complete Time: 13:37 [facility] 01/31 13:05 Order name: Gloves, Sterile; Complete Time: 13:15 [facility] 01/31 13:05 Order name: Setup Suture Tray; Complete Time: 13:15 [facility] 01/31 13:05 Order name: Wound dressing; Complete Time: 13:36 [facility] Administered Medications: 12:45 Drug: Lidocaine-Epinephrine Infiltration -1%: (1:100,000) 10 ml 20 ml Infiltration cc6 once; to bedside Volume: 20 ml; Route: Infiltration; 13:15 Follow up: Response: No adverse reaction cc6 13:36 Not Given (Patient Refused): norco10 mg-325 mg 1 tabs PO once ph Disposition Summary: 01/31/25 13:10 Discharge Ordered Notes: Location: Home [facility] Problem: new dannie Symptoms: have improved dannie Condition: Stable dannie Diagnosis - Cutaneous abscess of other sites - right buttock dannie Followup: dannie - With: Private Physician - When: 2 - 3 days - Reason: Recheck today's complaints, Continuance of care, Re-evaluation by your physician Followup: dannie - With: Oscar Cowan MD - When: 2 - 3 days - Reason: Recheck today's complaints, Re-evaluation by your physician Discharge Instructions: - Discharge Summary Sheet dannie - Skin Abscess dannie - Incision and Drainage dannie - Skin Abscess, [id number] dannie - Incision and Drainage, Care After dannie Forms: - Medication Reconciliation Form [facility] - Antibiotic Education dannie - Prescription Opioid Use [facility] - Patient Portal Instructions [facility] - Leadership Thank You Letter [facility] Prescriptions: - Centany 2 % Topical ointment - apply 1 application TOPICAL route 3 times per day; 15 gram tube; Refills: 0, [facility] Product Selection Permitted - Tylenol-Codeine #3 300mg-30mg Oral tablet - take 2 tablets ORAL route every 6 hours As needed; 20 tablet; Refills: 0, [facility] Product Selection Permitted Signatures: Dispatcher [employer] Natanael Mcneil MD MD cha Hall, Patricia RN RN Yariel An RN RN ll1 Eryn Braden RN RN cc6
--- NOTE | 2025-01-31 13:11 | ER ---
Nurse's Notes [facility] Name: Missy Gardner Age: 54 yrs Sex: Female : 1970 Arrival Date: 01/31/2025 Time: 11:41 Bed 15 Private MD: Diagnosis: Cutaneous abscess of other sites-right buttock Presentation: 01/31 11:52 Chief complaint: Patient states: R buttocks/hip area abscess has gotten more red since ll1 yesterday, and more painful. States taking antibiotics as prescribed. Would like it lanced this time. Coronavirus screen: Client denies travel out of the [place] in the last 14 days. At this time, the client does not indicate any symptoms associated with coronavirus-19. Ebola Screen: Patient denies travel to an Ebola-affected area in the 21 days before illness onset. Initial Sepsis Screen: Does the patient meet any 2 criteria? No. Patient's initial sepsis screen is negative. Does the patient have a suspected source of infection? No. Patient's initial sepsis screen is negative. Risk Assessment: Do you want to hurt yourself or someone else? Patient reports no desire to harm self or others. Onset of symptoms was January 25, 2025. 11:52 Method Of Arrival: Ambulatory ll1 11:52 Acuity: RALPH 3 ll1 Triage Assessment: 12:10 Bite description: bite sustained to right gluteus sapphire is infected, from insect was cc6 sustained by a spider, animal information: vaccination(s) is current. Historical: - Allergies: 11:46 PENICILLINS; ll1 - PMHx: 11:46 Anxiety; panic attack; ll1 - PSHx: 11:46 hysterectomy; ll1 - Immunization history:: Adult Immunizations up to date. - Infectious Disease History:: Denies. - Social history:: Smoking status: Reported history of juuling and/or vaping. - Family history:: not pertinent. Screenin:04 [facility] ED Fall Risk Assessment (Adult) History of falling in the last 3 months, cc6 including since admission No falls in past 3 months (0 pts) Confusion or Disorientation No (0 pts) Intoxicated or Sedated No (0 pts) Impaired Gait No (0 pts) Mobility Assist Device Used No (0 pt) Altered Elimination No (0 pt) Score/Fall Risk Level 0 - 2 = Low Risk Oriented to surroundings, Maintained a safe environment, Hourly rounding (assess needs \T\ fall precautionary measures) done. Abuse screen: Denies threats or abuse. Denies injuries from another. Nutritional screening: No deficits noted. Tuberculosis screening: No symptoms or risk factors identified. Assessment: 12:04 General: Appears in no apparent distress. uncomfortable, Behavior is calm, cooperative. cc6 Pain: Complains of pain in right gluteus sapphire Pain radiates to right lower back Pain currently is 9 out of 10 on a pain scale. Neuro: Level of Consciousness is awake, alert, obeys commands, Oriented to person, place, time, situation. Cardiovascular: Patient's skin is warm and dry. Respiratory: Airway is patent Respiratory effort is even, unlabored, Respiratory pattern is regular, symmetrical. GI: No signs and/or symptoms were reported involving the gastrointestinal system. : No signs and/or symptoms were reported regarding the genitourinary system. EENT: No signs and/or symptoms were reported regarding the EENT system. Derm: Wound noted right gluteus sapphire Wound is INSECT BITE AREA IS BLACK IN THE MIDDLE AND RED ON THE OUTSIDE. Musculoskeletal: No signs and/or symptoms reported regarding the musculoskeletal system. Vital Signs: 11:52 BP 130 / 73; Pulse 78; Resp 17; Temp 98.7; Pulse Ox 100% ; Weight 86.18 kg; Height 5 ll1 ft. 2 in. ; Pain 10/10; 11:52 Body Mass Index 34.75 (86.18 kg, 157.48 cm) ll1 11:52 Pain Scale: Adult ll1 ED Course: 11:45 Patient arrived in ED. al6 11:45 Arm band placed on Patient placed in an exam room, on a stretcher. ll1 11:48 Natanael Brink MD is Attending Physician. dannie 11:54 Triage completed. ll1 12:03 Eryn Braden RN is Primary Nurse. cc6 13:10 Oscar Cowan MD is Referral Physician. dannie 13:15 Assist provider with I \T\ D: of an abscess on left buttock Set up I\T\D tray. Performed by genny Brink MD Culture sent to lab. Wound packed. iodoform gauze, Dressing with 4X4s, tegaderm Patient tolerated poorly. Patient did not have IV access during this emergency room visit. 13:39 Patient has correct armband on for positive identification. Bed in low position. Call ph light in reach. Side rails up X 1. Door closed. Noise minimized. Administered Medications: 12:45 Drug: Lidocaine-Epinephrine Infiltration -1%: (1:100,000) 10 ml 20 ml Infiltration cc6 once; to bedside Volume: 20 ml; Route: Infiltration; 13:15 Follow up: Response: No adverse reaction cc6 13:36 Not Given (Patient Refused): norco10 mg-325 mg 1 tabs PO once ph Medication: 13:37 VIS not applicable for this client. ph Outcome: 13:10 Discharge ordered by . dannie 13:40 Discharged to home ambulatory, 13:40 Condition: good 13:40 Discharge instructions given to patient, Instructed on discharge instructions, follow up and referral plans. medication usage, Demonstrated understanding of instructions, follow-up care, medications, wound care, Prescriptions given X 2, 13:40 Patient left the ED. ph Signatures: Natanael Brink MD MD cha Hall, Patricia, RN RN Yariel Moraes RN RN ll1 Eryn Braden RN RN cc6 Monet Hogan6 Corrections: (The following items were deleted from the chart) 13:37 13:37 Wound care: to ph ph
[2025-01-31] MEDS ORDERED: HYDROCODONE/APAP 10/325 TAB ONE (13:16)
[2025-01-31 14:09] VITALS: BP 130/73; TEMP 98.7; O2SAT 100
== END 2025-01-31 13:40 | disposition home or self-care (01) ==
LOC: ER 11:41
PROC: 0H98XZZ Drainage of Buttock Skin, External Approach (ICD-10-PCS; principal; 2025-01-31)
DX: L02.31 Cutaneous abscess of buttock (principal)
CPT/HCPCS: 87070; 87077; 87186; 87205; 99284